=== PATIENT | female | born 1980 | race Caucasian/White ===

== ENCOUNTER 2019-07-23 16:41 | Emergency (ER) | payer MEDICARE, OTHER ==
[~2019-07-23] VITALS: Ht 167.7 cm; Wt 77.1 kg
[~2019-07-23 16:41] MED LIST: AMOX1TAB63 PO; BPR100T; BPR100T PO; BSP10T PO; CEFD300C3 PO; CITA10TA70 PO; CLON1TAB36 PO; FAMO20TA5 PO; FLT05NA16 NSEACH; HYDR-707 PO; HYDR200T46 PO; HYDR50TA76 PO; IBP800T PO; METH4TAB PO; NFPRILOC40 PO; OXYC-12 PO; PANT20TA2 PO; PREN1TAB39; PREN1TAB71 PO; SERT25TA PO; SUCR1TAB36 PO; TRAM50TA2 PO
[2019-07-23 17:10] LABS: BILIRUBIN,URINE NEGATIVE (NEGATIVE); CLARITY,URINE CLEAR; COLOR,URINE YELLOW; GLUCOSE, URINE (UA) NEGATIVE (NEGATIVE); KETONES,URINE NEGATIVE (NEGATIVE); LEUKOCYTE ESTERASE ,URINE NEGATIVE (NEGATIVE); NITRITE,URINE NEGATIVE (NEGATIVE); PROTEIN,URINE NEGATIVE (NEGATIVE)
[2019-07-23 17:19] LABS: BACTERIA,URINE TRACE /HPF
--- NOTE | 2019-07-23 17:26 | ED Abdominal Pain ---
General Chief Complaint: Abdominal/GI Problems Stated Complaint: SIDE PAIN Nursing Triage Note: PT AMB TO [facility] 8 WITH COMPLAINT OF LEFT SIDED ABD PAIN FOR 3 WEEKS. STATES HAD SIMILAR EPISODE ABOUT A YEAR AGO AND DIAGNOSED WITH COLITIS. Sepsis Screen: No Definite Risk Source of Information: Patient Exam Limitations: No Limitations History of Present Illness Date Seen by Provider: Jul 23, 2019 Time Seen by Provider: 17:07 Initial Comments Patient presents to ER by private conveyance from home with chief complaint for the past 3 weeks she's felt a knot on the left side of her abdomen and feeling of worsening chronic constipation. She is reliant on hydrocodone daily. She follows with Dr. Valdes's office. Today she was unable to pass much of a stool and 2 days before that before she had her last bowel movement. She does etienne chronic constipation and uses Colace. She's not taken any laxatives, MiraLAX etc. but occasionally she says she's had to use that in the past. She called her doctor's office today and she says they recommend she come to the ER since they could not get her in today. Patient says this happened about a year ago when she went to [place] and they did a scan said she had some general colitis and recommend she get a colonoscopy. She did get an EGD but she never followed through on the colonoscopy. She's not had a colonoscopy before. No primary or familial history of colorectal cancer. She's not having any blood in her stool. She's not having significant pain at this time. She does not want anything for pain. No nausea or vomiting. Appetite and fluid intake are normal. No fevers or chills. Allergies and Home Medications Allergies Coded Allergies: Sulfa (Sulfonamide Antibiotics) (Unverified Allergy, Mild, 05/16/09) Home Medications Citalopram Hydrobromide 10 Mg Tablet, 20 MG PO DAILY, (Reported) Hydroxychloroquine Sulfate 200 Mg Tab, 400 MG PO DAILY, (Reported) Pantoprazole Sodium 20 Mg Tablet.dr, 20 MG PO DAILY, (Reported) Sucralfate 1 Gm Tablet, 1 GM PO UD, (Reported) Patient Home Medication List Home Medication List Reviewed: Yes Review of Systems Review of Systems Constitutional: No chills, No fever, No malaise EENTM: No Blurred Vision, No Double Vision Respiratory: Denies Cough, Denies Orthopnea Cardiovascular: Denies Chest Pain, Denies Edema Gastrointestinal: See HPI, Abdominal Pain, Constipated; Denies Diarrhea, Denies Nausea Genitourinary: Denies Burning, Denies Discharge Musculoskeletal: No back pain, No joint pain All Other Systems Reviewed Negative Unless Noted: Yes Past Ebaiujy-Dpkvck-Rycmxt Hx Patient Social History Alcohol Use: Occasionally Uses Recreational Drug Use: Yes (positive drug screens during ) Smoking Status: Current Everyday Smoker Type Used: Electronic/Vapor Recent Foreign Travel: No Contact w/Someone Who Travel: No Recent Infectious Disease Expo: No Recent Hopitalizations: No Immunizations Up To Date Tetanus Booster (TDap): Unknown PED Vaccines UTD: Yes Past Medical History Surgeries: No Respiratory: No Cardiac: No Neurological: No Reproductive Disorders: Yes Gastrointestinal: Yes Hiatal Hernia Musculoskeletal: Yes (sees tax examiner for lupus or RA) Endocrine: Yes Lupus Psychosocial: Yes Blood Disorders: No (LOW PLATELETS) Physical Exam Vital Signs Vital Signs - First Documented 07/23/19 16:59 Temp 36.5 Pulse 74 Resp 20 B/P (MAP) 146/95 (112) Pulse Ox 98 O2 Delivery Room Air Capillary Refill : Less Than 3 Seconds Height/Weight/BMI Height: 5'6" Weight: 169lbs. oz. 76.330907ki; 27.00 BMI Method:Stated General Appearance: WD/WN, no apparent distress HEENT: PERRL/EOMI, normal ENT inspection Neck: full range of motion, normal inspection Respiratory: lungs clear, normal breath sounds, no respiratory distress, no accessory muscle use Cardiovascular: normal peripheral pulses, regular rate, rhythm Gastrointestinal: normal bowel sounds, non tender, soft Extremities: normal range of motion, non-tender, normal inspection, normal capillary refill Neurologic/Psychiatric: alert, normal mood/affect, oriented x 3 Skin: normal color, warm/dry Progress/Results/Core Measures Results/Orders Lab Results Laboratory Tests Test 07/23/19 17:00 07/23/19 17:30 Range/Units Urine Color YELLOW Urine Clarity CLEAR Urine pH 6.0 5-9 Urine Specific [place] 1.010 L 1.016-1.022 Urine Protein NEGATIVE NEGATIVE Urine Glucose (UA) NEGATIVE NEGATIVE Urine Ketones NEGATIVE NEGATIVE Urine Nitrite NEGATIVE NEGATIVE Urine Bilirubin NEGATIVE NEGATIVE Urine Urobilinogen 0.2 < = 1.0 MG/DL Urine Leukocyte Esterase NEGATIVE NEGATIVE Urine RBC (Auto) NEGATIVE NEGATIVE Urine RBC NONE /HPF Urine WBC NONE /HPF Urine Squamous Epithelial Cells 2-5 /HPF Urine Crystals NONE /LPF Urine Bacteria TRACE /HPF Urine Casts NONE /LPF Urine Mucus NEGATIVE /LPF Urine Culture Indicated NO White Blood Count 8.2 4.3-11.0 10^3/uL Red Blood Count 4.10 L 4.35-5.85 10^6/uL Hemoglobin 13.3 11.5-16.0 G/DL Hematocrit 39 35-52 % Mean Corpuscular Volume 94 80-99 FL Mean Corpuscular Hemoglobin 32 25-34 PG Mean Corpuscular Hemoglobin Concent 35 32-36 G/DL Red Cell Distribution Width 13.0 10.0-14.5 % Platelet Count 166 130-400 10^3/uL Mean Platelet Volume 11.1 H 7.4-10.4 FL Neutrophils (%) (Auto) 78 H 42-75 % Lymphocytes (%) (Auto) 15 12-44 % Monocytes (%) (Auto) 7 0-12 % Eosinophils (%) (Auto) 1 0-10 % Basophils (%) (Auto) 0 0-10 % Neutrophils # (Auto) 6.4 1.8-7.8 X 10^3 Lymphocytes # (Auto) 1.2 1.0-4.0 X 10^3 Monocytes # (Auto) 0.5 0.0-1.0 X 10^3 Eosinophils # (Auto) 0.1 0.0-0.3 10^3/uL Basophils # (Auto) 0.0 0.0-0.1 10^3/uL Sodium Level 138 135-145 MMOL/L Potassium Level 3.6 3.6-5.0 MMOL/L Chloride Level 106 98-107 MMOL/L Carbon Dioxide Level 22 21-32 MMOL/L Anion Gap 10 5-14 MMOL/L Blood Urea Nitrogen 14 7-18 MG/DL Creatinine 0.88 0.60-1.30 MG/DL Estimat Glomerular Filtration Rate > 60 BUN/Creatinine Ratio 16 Glucose Level 114 H 70-105 MG/DL Calcium Level 9.1 8.5-10.1 MG/DL Corrected Calcium 8.9 8.5-10.1 MG/DL Total Bilirubin 0.3 0.1-1.0 MG/DL Aspartate Amino Transf (AST/SGOT) 22 5-34 U/L Alanine Aminotransferase (ALT/SGPT) 20 0-55 U/L Alkaline Phosphatase 54 40-136 U/L Total Protein 6.6 6.4-8.2 GM/DL Albumin 4.2 3.2-4.5 GM/DL Lipase 30 8-78 U/L My Orders Orders - JHONY VU Ua Culture If Indicated (07/23/19 16:47) Urine Bedside (07/23/19 16:47) Cbc With Automated Diff (07/23/19 17:17) Comprehensive Metabolic Panel (07/23/19 17:17) Lipase (07/23/19 17:17) Vital Signs/I&O 07/23/19 16:59 Temp 36.5 Pulse 74 Resp 20 B/P (MAP) 146/95 (112) Pulse Ox 98 O2 Delivery Room Air Blood Pressure Mean: 112 Progress Progress Note #1: Time: 17:12 Progress Note Patient has aseptic vital signs with a nonacute, nonsurgical abdomen. Plan to obtain some basic labs and if they are reassuring put her out with a bowel r egimen. Patient is okay with this plan. She does not want anything for pain now. She says mostly she wanted a referral to gastroenterology, Dr. Foster so she can get colonoscopy set up. Progress Note #2: Time: 18:59 Progress Note Patient had no material deterioration in her stay. Her labs are unremarkable for any give her a dose of Toradol for her discomfort tonight and ask her to start a serious bowel regimen. She agrees with this plan. She was told the past to get a colonoscopy and would like to pursue that now. We have given her referral to local surgeon Dr. Sanders. She says she would like to see the GI doctor Dr. Israel which would also be reasonable. Departure Impression Primary Impression: Constipation Qualified Codes: K59.03 - Drug induced constipation Disposition: 01 HOME, SELF-CARE Condition: Stable Departure-Patient Inst. Decision time for Depature: 19:00 Referrals: MACEY SANDERS JONATHAN L MD (PCP/Family) Primary Care Physician Patient Instructions: Constipation, Adult (DC) Add. Discharge Instructions: MiraLAX 1 capful in 6-8 ounces of fluid of your choice. Do this 3 times a day for the next several days until you have copious bowel movements. 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 Return to the ER promptly if you have severe, pain, fever especially above 102.5 or other worrisome symptoms. You may continue using the Colace. Plan to follow up for endoscopy with Dr. Foster, gastroenterology or if you choose you may follow-up with Dr. Sanders, General Surgery local. All discharge instructions reviewed with patient and/or family. Voiced understanding. Copy Copies To 1: MACEY SANDERS TITUS J Jul 23, 2019 17:26
[2019-07-23 17:39] LABS: BASOPHILS % (AUTO) 0 % (0-10); EOSINOPHILS # (AUTO) 0.1 10^3/uL (0.0-0.3); EOSINOPHILS % (AUTO) 1 % (0-10); HEMATOCRIT 39 % (35-52); HEMOGLOBIN 13.3 G/DL (11.5-16.0); LYMPHOCYTES # (AUTO) 1.2 X 10^3 (1.0-4.0); LYMPHOCYTES % (AUTO) 15 % (12-44); MEAN CORPUSCULAR HEMOGLOBIN 32 PG (25-34); MEAN CORPUSCULAR HGB CONC 35 G/DL (32-36); MEAN CORPUSCULAR VOLUME 94 FL (80-99); MEAN PLATELET VOLUME 11.1 FL (7.4-10.4); MONOCYTES # (AUTO) 0.5 X 10^3 (0.0-1.0); MONOCYTES % (AUTO) 7 % (0-12); NEUTROPHILS # (AUTO) 6.4 X 10^3 (1.8-7.8); NEUTROPHILS % (AUTO) 78 % (42-75); PLATELET COUNT 166 10^3/uL (130-400); WHITE BLOOD COUNT 8.2 10^3/uL (4.3-11.0)
[2019-07-23 18:01] LABS: ALANINE AMINOTRANSFERASE 20 U/L (0-55); ALBUMIN 4.2 GM/DL (3.2-4.5); ALKALINE PHOSPHATASE 54 U/L (40-136); BILIRUBIN,TOTAL 0.3 MG/DL (0.1-1.0); BUN/CREATININE RATIO 16; CALCIUM 9.1 MG/DL (8.5-10.1); CARBON DIOXIDE 22 MMOL/L (21-32); CHLORIDE 106 MMOL/L (98-107); CREATININE SERUM 0.88 MG/DL (0.60-1.30); GFR ESTIMATED > 60; GLUCOSE 114 MG/DL (70-105); LIPASE 30 U/L (8-78); POTASSIUM 3.6 MMOL/L (3.6-5.0); SODIUM 138 MMOL/L (135-145); TOTAL PROTEIN 6.6 GM/DL (6.4-8.2)
[2019-07-23] MEDS ORDERED: KETOROLAC 60 MG/2 ML VIAL IM ONE (19:00)
[2019-07-23 19:21] VITALS: BP 134/89
== END 2019-07-23 19:18 | disposition home or self-care (01) ==
LOC: EDUNIT# 16:41 → ER 16:43
DX: K59.00 Constipation, unspecified (principal); F17.290 Nicotine dependence, other tobacco product, uncomplicated; Z88.2 Allergy status to sulfonamides
CPT/HCPCS: 36415; 80053; 81000; 83690; 84703; 85025